=== PATIENT | male | born 1975 | race African-American/Black ===

== ENCOUNTER 2020-12-20 14:04 | Emergency (ER) | payer MEDICAID ==
[~2020-12-20] VITALS: Ht 190.5 cm; Wt 72.7 kg
[2020-12-20] MEDS ORDERED: ACETAMINOPHEN 500 MG TABLET PO ONE (15:00)
[2020-12-20 15:06] LABS: BASOPHILS % (AUTO) 0.3 % (0.0-2.0); EOSINOPHILS % (AUTO) 1.3 % (1.0-6.0); HEMATOCRIT 42.3 % (41-53); HEMOGLOBIN 14.1 g/dL (13.5-17.5); LYMPHOCYTES # (AUTO) 1.4 K/uL (1.0-4.8); LYMPHOCYTES % (AUTO) 26.7 % (22.0-44.0); MEAN CORPUSCULAR HEMOGLOBIN 28.9 pg (26.0-34.0); MEAN CORPUSCULAR HGB CONC 33.3 G/dL (31.0-37.0); MEAN CORPUSCULAR VOLUME 87 fL (80-100); MONOCYTES # (AUTO) 0.4 K/uL (0.1-1.0); MONOCYTES % (AUTO) 7.4 % (2.0-9.0); NEUTROPHILS # (AUTO) 3.4 K/uL (1.8-7.7); NEUTROPHILS % (AUTO) 64.3 % (40.0-70.0); PLATELET COUNT (AUTO) 183 K/uL (150-450); RED BLOOD CELL COUNT(AUTO) 4.86 MIL/uL (4.50-5.90)
[2020-12-20 15:16] LABS: ANION GAP 6 mmol/L (8-16); CARBON DIOXIDE 32 mmol/L (22-29); CHLORIDE 106 mmol/L (98-107); CREATININE 1.03 mg/dL (0.60-1.30); GLOMERULAR FILTR. RATE CALC > 60 mL/min (>60); GLUCOSE,RANDOM 88 mg/dL (70-110); POTASSIUM 4.5 mmol/L (3.5-5.1); SODIUM SERUM 144 mmol/L (136-145); UREA NITROGEN, BLOOD 14 mg/dL (7-18)
[2020-12-20 16:25] VITALS: BP 148/89
== END 2020-12-20 16:59 | disposition home or self-care (01) ==
LOC: EMS 14:04
DX: R07.89 Other chest pain (principal); R51.9 Headache, unspecified; H11.001 Unspecified pterygium of right eye
CPT/HCPCS: 71045; 80048; 84484; 85025; 85379; 93005; 99285; 36415-L1; 36415-TC

== ENCOUNTER 2021-01-04 16:03 | Emergency (ER) | payer MEDICAID ==
[~2021-01-04] VITALS: Ht 185.4 cm; Wt 73.0 kg
[2021-01-04 19:06] LABS: BASOPHILS % (AUTO) 0.6 % (0.0-2.0); EOSINOPHILS % (AUTO) 1.4 % (1.0-6.0); HEMATOCRIT 40.8 % (41-53); HEMOGLOBIN 13.7 g/dL (13.5-17.5); LYMPHOCYTES # (AUTO) 1.3 K/uL (1.0-4.8); LYMPHOCYTES % (AUTO) 21.9 % (22.0-44.0); MEAN CORPUSCULAR HEMOGLOBIN 28.8 pg (26.0-34.0); MEAN CORPUSCULAR HGB CONC 33.6 G/dL (31.0-37.0); MEAN CORPUSCULAR VOLUME 86 fL (80-100); MONOCYTES # (AUTO) 0.5 K/uL (0.1-1.0); MONOCYTES % (AUTO) 8.3 % (2.0-9.0); NEUTROPHILS # (AUTO) 3.9 K/uL (1.8-7.7); NEUTROPHILS % (AUTO) 67.8 % (40.0-70.0); PLATELET COUNT (AUTO) 163 K/uL (150-450); RED BLOOD CELL COUNT(AUTO) 4.76 MIL/uL (4.50-5.90)
[2021-01-04 19:09] LABS: COVID AG,FIA SOURCE NASOPHARYNGEAL
[2021-01-04 19:22] LABS: ANION GAP 11 mmol/L (8-16); CALCIUM, TOTAL 8.8 mg/dL (8.8-10.5); CARBON DIOXIDE 30 mmol/L (22-29); CHLORIDE 101 mmol/L (98-107); CREATININE 1.02 mg/dL (0.60-1.30); GLOMERULAR FILTR. RATE CALC > 60 mL/min (>60); GLUCOSE,RANDOM 95 mg/dL (70-110); POTASSIUM 4.2 mmol/L (3.5-5.1); SODIUM SERUM 142 mmol/L (136-145); UREA NITROGEN, BLOOD 12 mg/dL (7-18)
[2021-01-04 19:28] LABS: INFLUENZA TYPE A NEGATIVE FOR TYPE A (NEGATIVE); INFLUENZA TYPE B NEGATIVE FOR TYPE B (NEGATIVE)
[2021-01-04 19:28] LABS: ALANINE AMINOTRANSFERASE 28 U/L (12-78); ALBUMIN 3.8 g/dL (3.4-5.0); ALKALINE PHOSPHATASE 86 U/L (46-116); ASPARTATE AMINOTRANSFERASE 27 U/L (15-37); BILIRUBIN,TOTAL 0.8 mg/dL (0.1-1.0); TOTAL PROTEIN, SERUM 7.7 g/dL (6.4-8.2)
[2021-01-04] MEDS ORDERED: ACETAMINOPHEN 500 MG TABLET PO ONE (19:45)
[2021-01-04 21:10] VITALS: BP 134/77
== END 2021-01-04 21:42 | disposition home or self-care (01) ==
LOC: EMS 16:03
DX: R51.9 Headache, unspecified (principal); T50.B95A Adverse effect of other viral vaccines, initial encounter
CPT/HCPCS: 71045; 36415; 80053; 85025; 87426; 87804; 99283; U0003

== ENCOUNTER 2021-04-27 10:19 | Emergency (ER) | payer MEDICAID, OTHER ==
[~2021-04-27] VITALS: Ht 182.9 cm; Wt 72.0 kg
[2021-04-27 10:31] VITALS: BP 163/109
[2021-04-27] MEDS ORDERED: ACET-3385 PO (12:59)
[2021-04-27] MEDS ORDERED: IBUP-2070 PO (12:59)
== END 2021-04-27 13:09 | disposition home or self-care (01) ==
LOC: EMS 10:22
DX: R51.9 Headache, unspecified (principal)
CPT/HCPCS: 99173; 99282; Z7502